=== PATIENT | male | born 1950 | race Caucasian/White ===

== ENCOUNTER 2017-11-03 01:03 | Emergency (ER) | payer OTHER ==
[~2017-11-03] VITALS: Ht 167.6 cm; Wt 91.6 kg
[~2017-11-03 01:03] MED LIST: ATENOLOL; ATENOLOL25 M1 NG; AVODART0.5 MG PO; LEVAQUIN500 MG PO; NEXIUM20 MG PO; NEXIUM40 MG PO; PROTONIX40 MG PO; TRAMADOL HCL50 MG PO; VYTORIN 10/41 TABLET PO; ZANTAC150 MG PO
[2017-11-03 01:54] LABS: HEMATOCRIT 41.6 % (38.0-50.0); MCH 31.3 PG (29.0-34.0); MCHC 34.1 G/DL (30.0-36.0); MCV 91.6 FL (86-99); MEAN PLAT.VOLUME 10.1 uM^3 (9.0-12.4); PLATELET COUNT 136 K/uL (156-360); RBC DIS.WIDTH-CV 12.2 % (11.8-14.6); RED BLOOD COUNT 4.54 M/uL (4.00-5.50); WHITE BLOOD COUNT 5.6 K/uL (4.1-10.2)
[2017-11-03 02:02] LABS: CHLORIDE 104 mEq/L (99-109); POTASSIUM 4.2 mEq/L (3.7-5.4); SODIUM 138 mEq/L (136-147)
[2017-11-03 02:04] LABS: GLUCOSE 118 mg/dL (70-99)
[2017-11-03 02:05] LABS: ANION GAP 10 MEQ/L (2-14)
[2017-11-03 02:06] LABS: TOTAL BILIRUBIN 0.3 mg/dL (0.0-1.0)
[2017-11-03 02:08] LABS: ALKALINE PHOSPHATASE 113 IU/L (3-129); GFR ESTIMATE (CALCULATED) > 59 mL/min/
[2017-11-03 02:09] LABS: UREA NITROGEN (BUN) 23 mg/dL (9-23)
[2017-11-03 03:24] LABS: LIPASE 25 U/L (1.0-51.0)
[2017-11-03 03:24] LABS: ADD MIUA? NO; BILIRUBIN NEGATIVE; BLOOD NEGATIVE; COLOR COLORLESS ((YELLOW)); GLUCOSE (STRIP) NEGATIVE; KETONES NEGATIVE; LEUKOCYTES NEGATIVE; NITRITE NEGATIVE; PROTEIN (STRIP) NEGATIVE; SPECIFIC GRAVITY 1.005 (1.000-1.030); UCUL ADDED? NO; UROBILINOGEN 0.2 MG/DL (0.2-1.0)
[2017-11-03] MEDS ORDERED: RANITIDINE HCL300 M1 PO (04:25)
[2017-11-03] MEDS ORDERED: CARAFATE1 GM PO (04:25)
[2017-11-03 04:38] VITALS: BP 114/69
== END 2017-11-03 04:40 | disposition home or self-care (01) ==
LOC: EME 01:03
DX: R10.11 Right upper quadrant pain (principal); R11.0 Nausea; K76.0 Fatty (change of) liver, not elsewhere classified
CPT/HCPCS: 76705; 80053; 81003; 83690; 85027; 99281; 99284